=== PATIENT | female | born 1995 | race Caucasian/White ===

== ENCOUNTER 2017-02-27 10:21 | Emergency (ER) | payer OTHER ==
[2017-02-27 10:49] LABS: BASOPHIL 0.2 % (0-2); BILIRUBIN NEGATIVE (NEGATIVE); BLOOD 1+ Ery/uL (NEGATIVE); CLARITY CLEAR (CLEAR); COLOR YELLOW (YELLOW); EOSINOPHIL 2.2 % (0-5); GLUCOSE (U) NORMAL (NORMAL); HCT 40.4 % (37.0-47.0); HGB 14.2 g/dl (12.5-16.0); KETONE (U) NEGATIVE (NEGATIVE); LEUKOCYTES NEGATIVE Leu/uL (NEGATIVE); MCH 31.8 pg (25.0-31.0); MCHC 35.1 g/dL (32.0-36.0); MCV 90.6 fL (78.0-100.0); MONOCYTE 5.7 % (0-12); MPV 9.3 fL (6.0-9.5); NEUTROPHIL 73.9 % (41-80); NITRITE NEGATIVE (NEGATIVE); PLT 310 K/uL (150-400); PROTEIN TRACE (LOW) mg/dL (NEGATIVE); RBC 4.46 M/uL (4.20-5.40); SPECIFIC GRAVITY 1.025 (1.001-1.030); WBC 11.3 K/uL (4.0-10.5)
[2017-02-27 10:54] LABS: BACTERIA 2+; URINARY WBC RARE
[2017-02-27 11:07] LABS: ALBUMIN 4.9 g/dL (3.5-5.0); BILIRUBIN - TOTAL 0.4 mg/dL (0.1-1.0); CREATININE 0.8 mg/dL (0.5-1.0); TOTAL PROTEIN 7.9 g/dL (6.4-8.3)
== END 2017-02-27 14:53 | disposition home or self-care (01) ==
LOC: FER 10:21
PROVIDERS: Emergency Medicine
DX: N30.00 Acute cystitis without hematuria (principal); R10.11 Right upper quadrant pain; Z83.49 Family history of other endocrine, nutritional and metabolic diseases; Z88.0 Allergy status to penicillin
CPT/HCPCS: 36415; 80053; 81001; 82150; 83690; 85025; Q9967